=== PATIENT | female | born 1970 | race Caucasian/White ===

== ENCOUNTER 2018-10-01 19:12 | Inpatient (IN) | payer OTHER ==
[2018-10-01 23:33] LABS: ADD MAN DIFF? NO
[2018-10-01 23:34] LABS: URINE PH (Dip) POC 8.5 (5.0-8.5)
[2018-10-01 23:34] LABS: URINE BLOOD (Dip) POC Trace-intact (NEGATIVE); URINE GLUCOSE (Dip) POC Negative (NEGATIVE); URINE KETONES (Dip) POC Negative (NEGATIVE); URINE LEUKOCYTE EST (Dip) POC 1+ (NEGATIVE); URINE NITRITE (Dip) POC Negative (NEGATIVE); URINE TOTAL PROTEIN POC Trace (NEGATIVE)
[2018-10-01 23:36] LABS: WHITE BLOOD COUNT 16.8 10^3/ul (4.8-10.8)
[2018-10-01 23:36] LABS: ABNORMAL IP MESSAGE 1; BASOPHILS % 0.2 % (0.0-2.0); HEMATOCRIT 35.5 % (37.0-47.0); LYMPHOCYTES # 0.5 10^3/ul (0.8-2.9); LYMPHOCYTES % 3.1 % (15.0-51.0); MEAN CORPUSCULAR HEMOGLOBIN 30.3 pg (29.0-33.0); MEAN CORPUSCULAR HGB CONC 33.8 g/dl (32.0-37.0); MEAN CORPUSCULAR VOLUME 89.6 fl (82.0-101.0); MEAN PLATELET VOLUME 9.4 fl (7.4-10.4); MONOCYTE # 0.7 10^3/ul (0.3-0.9); MONOCYTES % 4.1 % (0.0-11.0); NEUTROPHIL # 15.4 10^3/ul (1.6-7.5); NEUTROPHILS % 91.9 % (39.0-77.0); PLATELET COUNT 234 10^3/UL (140-415); RED BLOOD COUNT 3.96 10^6/ul (4.20-5.40); RED CELL DISTRIBUTION WIDTH 12.6 % (11.5-14.5)
[2018-10-01 23:40] LABS: POSITIVE DIFF @See below
[2018-10-02 00:06] LABS: ALANINE AMINOTRANSFERASE 22 IU/L (13-69); ALBUMIN 4.2 g/dl (3.3-4.9); ALBUMIN/GLOBULIN RATIO 1.16; ALKALINE PHOSPHATASE 60 IU/L (42-121); ANION GAP 11 (5-13); ASPARTATE AMINO TRANSFERASE 29 IU/L (15-46); BILIRUBIN,INDIRECT 0.8 mg/dl (0-1.1); BILIRUBIN,TOTAL 0.8 mg/dl (0.2-1.3); BLOOD UREA NITROGEN 22 mg/dl (7-20); CALCIUM 9.3 mg/dl (8.4-10.2); CARBON DIOXIDE 25 mmol/L (21-31); CHLORIDE 106 mmol/L (97-110); CREATININE 1.36 mg/dl (0.44-1.00); Estimated GFR 41 mL/min (>60); GLUCOSE 111 mg/dl (70-220); LIPASE 152 U/L (23-300); POTASSIUM 3.5 mmol/L (3.5-5.1); SODIUM 142 mmol/L (135-144); TOTAL PROTEIN 7.8 g/dl (6.1-8.1)
[2018-10-02] MEDS: KETOROLAC 30 MG INJ IV (00:18)
[2018-10-02] MEDS: morphine 2 MG INJ IV (00:29)
[2018-10-02] MEDS: ONDANSETRON 4 MG INJ IV (00:29)
[2018-10-02] MEDS: CEFTRIAXONE 1 GM/50 ML (PMX) 50 ML IVPB ×2 (01:48→02:00)
[2018-10-02] MEDS ORDERED: BISACODYL (EC) 5 MG TAB PO (02:00)
[2018-10-02] MEDS ORDERED: NACL 0.9% 3 ML SYG IV (02:00)
[2018-10-02] MEDS: TAMSULOSIN (SR) 0.4 MG CAP PO ×3 (03:04→20:33)
[2018-10-02] MEDS: SOD CHLORIDE 0.9% 1,000 ML IV ×4 (03:05→18:51)
[2018-10-02] MEDS: HYDROmorphONE 0.5 MG/0.5 ML SYG IV ×2 (05:32→20:33)
[2018-10-02 07:18] LABS: WHITE BLOOD COUNT 16.5 10^3/ul (4.8-10.8)
[2018-10-02 07:18] LABS: ABNORMAL IP MESSAGE 1; HEMATOCRIT 33.4 % (37.0-47.0); HEMOGLOBIN 10.8 g/dl (12.0-16.0); MEAN CORPUSCULAR HEMOGLOBIN 29.8 pg (29.0-33.0); MEAN CORPUSCULAR HGB CONC 32.3 g/dl (32.0-37.0); MEAN CORPUSCULAR VOLUME 92.3 fl (82.0-101.0); MEAN PLATELET VOLUME 9.1 fl (7.4-10.4); PLATELET COUNT 197 10^3/UL (140-415); RED BLOOD COUNT 3.62 10^6/ul (4.20-5.40)
[2018-10-02 07:22] LABS: ADD MAN DIFF? YES; POSITIVE DIFF @See below
[2018-10-02 07:50] LABS: ALANINE AMINOTRANSFERASE 26 IU/L (13-69); ALBUMIN 3.4 g/dl (3.3-4.9); ALBUMIN/GLOBULIN RATIO 1.03; ALKALINE PHOSPHATASE 37 IU/L (42-121); ANION GAP 7 (5-13); ASPARTATE AMINO TRANSFERASE 23 IU/L (15-46); BILIRUBIN,INDIRECT 0.7 mg/dl (0-1.1); BILIRUBIN,TOTAL 0.7 mg/dl (0.2-1.3); BLOOD UREA NITROGEN 22 mg/dl (7-20); CALCIUM 8.4 mg/dl (8.4-10.2); CARBON DIOXIDE 25 mmol/L (21-31); CHLORIDE 107 mmol/L (97-110); CREATININE 1.37 mg/dl (0.44-1.00); Estimated GFR 41 mL/min (>60); GLUCOSE 115 mg/dl (70-220); POTASSIUM 4.1 mmol/L (3.5-5.1); SODIUM 139 mmol/L (135-144); TOTAL PROTEIN 6.7 g/dl (6.1-8.1)
[2018-10-02 10:41] LABS: BAND NEUTROPHILS #M 5.6 10^3/ul (0.0-0.6); BAND NEUTROPHILS % (M) 34 % (0-4); EOSINOPHILS % (M) 1 % (0-7); LYMPHOCYTES #M 0.1 10^3/ul (0.8-2.9); LYMPHOCYTES % (M) 1 % (15-51); METAMYELOCYTES #M 0.1 10^3/ul (0.0-0.0); METAMYELOCYTES %M 1 % (0-0); MONOCYTE #M 0.6 10^3/ul (0.3-0.9); MONOCYTES % (M) 4 % (0-11); PLATELET ESTIMATE NORMAL; SEG NEUT #M 10.7 10^3/ul (1.6-7.5); SEGMENTED NEUTROPHILS (M) % 59 % (39-77); SMUDGE%M 52 % (0-0)
[2018-10-02] MEDS: DOCUSATE SODIUM 100 MG CAP PO (20:41)
[2018-10-03] MEDS: CEFTRIAXONE 1 GM/50 ML (PMX) 50 ML IVPB (02:00)
[2018-10-03] MEDS: SOD CHLORIDE 0.9% 1,000 ML IV ×3 (02:03→17:32)
[2018-10-03 06:01] LABS: WHITE BLOOD COUNT 15.8 10^3/ul (4.8-10.8)
[2018-10-03 06:01] LABS: ABNORMAL IP MESSAGE 1; HEMATOCRIT 32.9 % (37.0-47.0); HEMOGLOBIN 10.8 g/dl (12.0-16.0); MEAN CORPUSCULAR HEMOGLOBIN 30.3 pg (29.0-33.0); MEAN CORPUSCULAR HGB CONC 32.8 g/dl (32.0-37.0); MEAN CORPUSCULAR VOLUME 92.4 fl (82.0-101.0); MEAN PLATELET VOLUME 10.1 fl (7.4-10.4); PLATELET COUNT 150 10^3/UL (140-415); RED BLOOD COUNT 3.56 10^6/ul (4.20-5.40); RED CELL DISTRIBUTION WIDTH 13.4 % (11.5-14.5)
[2018-10-03 06:03] LABS: POSITIVE DIFF @See below
[2018-10-03 06:04] LABS: ADD MAN DIFF? YES
[2018-10-03 06:22] LABS: MAGNESIUM 1.7 mg/dl (1.7-2.5)
[2018-10-03] MEDS: ACETAMINOPHEN 325 MG TAB PO (06:24)
[2018-10-03 06:26] LABS: ALANINE AMINOTRANSFERASE 29 IU/L (13-69); ALBUMIN 2.8 g/dl (3.3-4.9); ALBUMIN/GLOBULIN RATIO 0.87; ALKALINE PHOSPHATASE 54 IU/L (42-121); ANION GAP 8 (5-13); ASPARTATE AMINO TRANSFERASE 31 IU/L (15-46); BILIRUBIN,INDIRECT 0.3 mg/dl (0-1.1); BILIRUBIN,TOTAL 0.3 mg/dl (0.2-1.3); BLOOD UREA NITROGEN 25 mg/dl (7-20); CALCIUM 7.9 mg/dl (8.4-10.2); CARBON DIOXIDE 21 mmol/L (21-31); CHLORIDE 110 mmol/L (97-110); CREATININE 1.47 mg/dl (0.44-1.00); Estimated GFR 38 mL/min (>60); GLUCOSE 101 mg/dl (70-220); POTASSIUM 3.8 mmol/L (3.5-5.1); SODIUM 139 mmol/L (135-144)
[2018-10-03] MEDS ORDERED: ONDANSETRON 4 MG INJ IV (06:30)
[2018-10-03] MEDS: ONDANSETRON 4 MG INJ IV ×2 (06:35→23:56)
[2018-10-03 07:46] LABS: BAND NEUTROPHILS #M 4.7 10^3/ul (0.0-0.6); BAND NEUTROPHILS % (M) 30 % (0-4); BURR CELLS 1+ (0-0); EOSINOPHILS % (M) 3 % (0-7); MONOCYTE #M 0.4 10^3/ul (0.3-0.9); MONOCYTES % (M) 3 % (0-11); PLATELET ESTIMATE NORMAL; PLATELET MORPHOLOGY COMMENT @See below; POIKILOCYTOSIS 1+ (0-0); REACTIVE LYMPHOCYTES #M 0.4 10^3/ul (0.0-0.0); REACTIVE LYMPHOCYTES% (M) 3 % (0-0); SEG NEUT #M 10.4 10^3/ul (1.6-7.5); SEGMENTED NEUTROPHILS (M) % 61 % (39-77); SMUDGE%M 21 % (0-0)
[2018-10-03 07:55] LABS: LACTIC ACID 1.3 mmol/L (0.5-2.0)
[2018-10-03] MEDS: TAMSULOSIN (SR) 0.4 MG CAP PO ×2 (08:40→20:58)
[2018-10-03] MEDS: PIPER-TAZO 3.375 GM IV (PMX) 100 ML IVPB ×4 (08:40→23:53)
[2018-10-03] MEDS: HYDROmorphONE 0.5 MG/0.5 ML SYG IV (17:44)
[2018-10-03] MEDS: HYDROCHLOROTHIAZIDE 12.5 MG CAP PO (23:50)
[2018-10-04] MEDS: hydrALAzine 20 MG INJ IV (01:04)
[2018-10-04] MEDS: SOD CHLORIDE 0.9% 1,000 ML IV ×4 (01:46→22:51)
[2018-10-04] MEDS: ACETAMINOPHEN 325 MG TAB PO ×3 (03:26→21:14)
[2018-10-04] MEDS: SOD CHLORIDE 0.9% 500 ML IV (03:59)
[2018-10-04 06:05] LABS: ADD MAN DIFF? NO
[2018-10-04 06:11] LABS: WHITE BLOOD COUNT 14.5 10^3/ul (4.8-10.8)
[2018-10-04 06:11] LABS: ABNORMAL IP MESSAGE 1; BASOPHILS % 0.1 % (0.0-2.0); EOSINOPHILS # 0.1 10^3/ul (0.0-0.5); EOSINOPHILS % 0.3 % (0.0-7.0); HEMATOCRIT 29.5 % (37.0-47.0); HEMOGLOBIN 9.9 g/dl (12.0-16.0); LYMPHOCYTES # 0.6 10^3/ul (0.8-2.9); MEAN CORPUSCULAR HEMOGLOBIN 30.4 pg (29.0-33.0); MEAN CORPUSCULAR HGB CONC 33.6 g/dl (32.0-37.0); MEAN CORPUSCULAR VOLUME 90.5 fl (82.0-101.0); MEAN PLATELET VOLUME 10.5 fl (7.4-10.4); MONOCYTE # 0.6 10^3/ul (0.3-0.9); MONOCYTES % 4.3 % (0.0-11.0); NEUTROPHIL # 13.2 10^3/ul (1.6-7.5); NEUTROPHILS % 90.5 % (39.0-77.0); PLATELET COUNT 126 10^3/UL (140-415); RED BLOOD COUNT 3.26 10^6/ul (4.20-5.40); RED CELL DISTRIBUTION WIDTH 13.2 % (11.5-14.5)
[2018-10-04 06:15] LABS: POSITIVE DIFF @See below
[2018-10-04] MEDS: PIPER-TAZO 3.375 GM IV (PMX) 100 ML IVPB ×3 (06:16→18:16)
[2018-10-04 06:45] LABS: ALANINE AMINOTRANSFERASE 45 IU/L (13-69); ALBUMIN 2.7 g/dl (3.3-4.9); ALBUMIN/GLOBULIN RATIO 0.84; ALKALINE PHOSPHATASE 68 IU/L (42-121); ANION GAP 6 (5-13); ASPARTATE AMINO TRANSFERASE 32 IU/L (15-46); BILIRUBIN,INDIRECT 0.4 mg/dl (0-1.1); BILIRUBIN,TOTAL 0.4 mg/dl (0.2-1.3); BLOOD UREA NITROGEN 14 mg/dl (7-20); CALCIUM 7.9 mg/dl (8.4-10.2); CARBON DIOXIDE 21 mmol/L (21-31); CHLORIDE 109 mmol/L (97-110); CREATININE 1.13 mg/dl (0.44-1.00); Estimated GFR 51 mL/min (>60); GLUCOSE 111 mg/dl (70-220); POTASSIUM 3.1 mmol/L (3.5-5.1); SODIUM 136 mmol/L (135-144); TOTAL PROTEIN 5.9 g/dl (6.1-8.1)
[2018-10-04 06:46] LABS: PHOSPHORUS 2.3 mg/dl (2.5-4.9)
[2018-10-04 06:46] LABS: MAGNESIUM 1.7 mg/dl (1.7-2.5)
[2018-10-04] MEDS: HYDROCHLOROTHIAZIDE 12.5 MG CAP PO (09:11)
[2018-10-04] MEDS: TAMSULOSIN (SR) 0.4 MG CAP PO ×2 (09:11→21:12)
[2018-10-04] MEDS: AMLODIPINE 5 MG TAB PO (11:05)
[2018-10-04] MEDS: POTASSIUM CHLORIDE (SR) 20 MEQ TAB PO (16:05)
[2018-10-04] MEDS: TRIMETHOPRIM/SULFAMETHOX (DS) TAB PO (21:12)
[2018-10-05] MEDS: SOD CHLORIDE 0.9% 1,000 ML IV ×2 (02:30→09:34)
[2018-10-05 05:47] LABS: ADD MAN DIFF? NO
[2018-10-05 06:09] LABS: BASOPHILS % 0.4 % (0.0-2.0); EOSINOPHILS # 0.2 10^3/ul (0.0-0.5); EOSINOPHILS % 1.9 % (0.0-7.0); HEMATOCRIT 28.3 % (37.0-47.0); HEMOGLOBIN 9.7 g/dl (12.0-16.0); LYMPHOCYTES # 1.6 10^3/ul (0.8-2.9); LYMPHOCYTES % 18.6 % (15.0-51.0); MEAN CORPUSCULAR HEMOGLOBIN 30.2 pg (29.0-33.0); MEAN CORPUSCULAR HGB CONC 34.3 g/dl (32.0-37.0); MEAN CORPUSCULAR VOLUME 88.2 fl (82.0-101.0); MEAN PLATELET VOLUME 10.5 fl (7.4-10.4); MONOCYTE # 0.9 10^3/ul (0.3-0.9); MONOCYTES % 10.2 % (0.0-11.0); NEUTROPHIL # 5.8 10^3/ul (1.6-7.5); PLATELET COUNT 141 10^3/UL (140-415); RED BLOOD COUNT 3.21 10^6/ul (4.20-5.40)
[2018-10-05 06:09] LABS: WHITE BLOOD COUNT 8.6 10^3/ul (4.8-10.8)
[2018-10-05 06:20] LABS: MAGNESIUM 1.7 mg/dl (1.7-2.5)
[2018-10-05 06:36] LABS: ALANINE AMINOTRANSFERASE 34 IU/L (13-69); ALBUMIN 2.8 g/dl (3.3-4.9); ALBUMIN/GLOBULIN RATIO 0.84; ALKALINE PHOSPHATASE 73 IU/L (42-121); ANION GAP 6 (5-13); ASPARTATE AMINO TRANSFERASE 22 IU/L (15-46); BILIRUBIN,INDIRECT 0.3 mg/dl (0-1.1); BILIRUBIN,TOTAL 0.3 mg/dl (0.2-1.3); BLOOD UREA NITROGEN 9 mg/dl (7-20); CALCIUM 8.3 mg/dl (8.4-10.2); CARBON DIOXIDE 24 mmol/L (21-31); CHLORIDE 108 mmol/L (97-110); CREATININE 0.95 mg/dl (0.44-1.00); Estimated GFR > 60 mL/min (>60); GLUCOSE 86 mg/dl (70-220); SODIUM 138 mmol/L (135-144); TOTAL PROTEIN 6.1 g/dl (6.1-8.1)
[2018-10-05] MEDS: POTASSIUM CHLORIDE (SR) 20 MEQ TAB PO (09:24)
[2018-10-05] MEDS: TRIMETHOPRIM/SULFAMETHOX (DS) TAB PO (09:25)
[2018-10-05] MEDS: TAMSULOSIN (SR) 0.4 MG CAP PO (09:25)
[2018-10-05] MEDS: HYDROCHLOROTHIAZIDE 12.5 MG CAP PO (09:25)
[2018-10-05] MEDS: AMLODIPINE 5 MG TAB PO (09:25)
[2018-10-05] MEDS: ENOXAPARIN 40 MG/0.4 ML SYG SC (12:25)
== END 2018-10-05 18:05 | disposition home or self-care (01) | DRG 690 ==
LOC: E/R 19:12 → PP2 10-02 01:58
DX: N13.6 Pyonephrosis (principal); N17.9 Acute kidney failure, unspecified; I10 Essential (primary) hypertension
CPT/HCPCS: 36415; 74018; 74176; 76705; 76830; 76856; 80053; 81003; 81025; 82355; 82962; 83605; 83690; 83735; 84100; 85025; 87086; 96374; 96375; 99285-25